=== PATIENT | male | born 1955 | race Caucasian/White ===

== ENCOUNTER 2016-10-21 16:39 | Emergency (ER) | payer OTHER ==
--- NOTE | 2016-10-21 17:51 | ED ---
Laceration/Wound HPI - HPI Summary HPI Summary: 61M presents with right thumb laceration today. he cut off distal tip with a knife. He brought the tip of the finger with him that he avulised. He is left handed. Last tetanus was 4 years ago. Area is still currently bleeding. He already cut off his pinky on his right hand that they tried to reattach but did not take. - History of Current Complaint Stated Complaint: THUMB LAC Time Seen by Provider: 10/21/16 17:31 Pain Intensity: 3 - Allergy/Home Medications Allergies/Adverse Reactions: Allergies Allergy/AdvReac Type Severity Reaction Status Date / Time No Known Allergies Allergy Verified 10/21/16 16:52 PMH/Surg Hx/FS Hx/Imm Hx Endocrine/Hematology History: Denies: Hx Diabetes Cardiovascular History: Denies: Hx Hypertension, Hx Pacemaker/ICD Sensory History: Denies: Hx Hearing Aid Psychiatric History: Denies: Hx Panic Disorder - Surgical History Surgery Procedure, Year, and Place: RT HAND SURGERY Infectious Disease History: No Infectious Disease History: Denies: Traveled Outside the in Last 30 Days - Family History Known Family History: Positive: Cardiac Disease - Social History Alcohol Use: Weekly Substance Use Type: Reports: Marijuana Smoking Status (MU): Never Smoked Tobacco Review of Systems Negative: Fever Negative: Chest Pain Negative: Shortness Of Breath Positive: Other - avulsion of right thumb All Other Systems Reviewed And Are Negative: Yes Physical Exam Triage Information Reviewed: Yes Vital Signs On Initial Exam: Initial Vitals Temp Pulse Resp BP Pulse Ox 98.2 F 76 15 126/72 100 10/21/16 16:49 10/21/16 16:49 10/21/16 16:49 10/21/16 16:49 10/21/16 16:49 Vital Signs Reviewed: Yes Appearance: Positive: Well-Appearing Skin: Positive: Other - avulsion 2cm by 1 cm avulsion of distal tip of right thumb without bony involvement that does not involve the nail Head/Face: Positive: Normal Head/Face Inspection Eyes: Positive: Normal, Conjunctiva Clear Respiratory/Lung Sounds: Positive: Clear to Auscultation, Breath Sounds Present Cardiovascular: Positive: Normal, RRR Procedures - Laceration/Wound Repair 1 Location: Other - right thumb Description: Irregular Anesthesia: Digital, 1.0% Length, Depth and Shape: 2 cm by 1 cm avulsion with tip of finger present in bag on ice Betadine Prep?: Yes Irrigated w/ Saline (ccs): 1,000 Laceration/Wound Explored: contaminated Closure: Single Layer Debridement: moderate Suture Type: Chromic Number of Sutures: 10 - 3 with 4-0 chromic gut, 7 with 5-0 fast absorbing gut Layer Closure?: No Sterile Dressing Applied?: No Diagnostics - Vital Signs Vital Signs Temp Pulse Resp BP Pulse Ox 10/21/16 16:49 98.2 F 76 15 126/72 100 - Laboratory Lab Statement: Any lab studies that have been ordered have been reviewed, and results considered in the medical decision making process. - Radiology finger Xray Interpretation: Positive (See Comments) - IMPRESSION: SOFT TISSUE DEFECT, NO FRACTURE OR RADIOPAQUE FOREIGN BODY IS SEEN. Radiology Interpretation Completed By: Radiologist Laceration Repair Course/Dx - Course Course Of Treatment: 61M presents with avulsion of distal tip of right thumb. brought tissue that was removed in bag on ice. cleaned and debrided tissue and attached tissue with 10 absorbable sutures: 3 using 4-0 and 7 using 5-0. explained area may not take and to follow up with primary for wound checks. tetanus is up to date. xray no bony involvement. started on antibiotics. patient understands and agrees with plan - Differential Dx Differental Diagnoses: Abrasion, Avulsion, Laceration - Clinical Impression Provider Diagnoses: Avulsion of skin of right thumb Discharge - Discharge Plan Condition: Good Disposition: HOME Prescriptions: Cephalexin CAP* [Keflex CAP*] 500 mg PO BID #13 cap oxyCODONE/Acetamin 5/325 MG* [Percocet 5/325 TAB*] 1 tab PO Q6H PRN #6 tab MDD 4 PRN Reason: Pain Patient Education Materials: Care For Your Absorbable Stitches (ED) Forms: *Work Release Referrals: Non Staff,Doctor [Primary Care Provider] - Additional Instructions: Take antibiotic twice a day for 7 days, first dose given in ED Keep area clean and dry, keep bandage on area and change daily Area may not take, sutures are absorbable and don't need to be removed Take Tylenol or ibuprofen every 6 hours, use narcotic for breath though pain every 6 hours Follow up with primary within 7 days Return to ED if develop any new or worsening symptoms or any signs of infection such as fever, spreading redness, pus Images - Images Hands: 1 - avulsion 2 cm by 1 cm avulsion
--- NOTE | 2016-10-21 18:21 | RAD ---
INDICATION: Cut right thumb with knife. TECHNIQUE: 3 views of the right thumb were obtained. FINDINGS: There is a soft tissue defect adjacent to the tuft of the distal phalanx. No fracture or radiopaque foreign body is seen. IMPRESSION: SOFT TISSUE DEFECT, NO FRACTURE OR RADIOPAQUE FOREIGN BODY IS SEEN.
[2016-10-21] MEDS ORDERED: Cephalexin CAP* 500 MG PO ONE ×2 (19:11→19:43)
[2016-10-21] MEDS ORDERED: oxyCODONE/Acetamin 5/325 MG* TAB PO ONE (19:43)
[2016-10-21 19:59] VITALS: BP 114/78
== END 2016-10-21 19:58 | disposition home or self-care (01) ==
LOC: ED 16:39
DX: S61.011A Laceration without foreign body of right thumb without damage to nail, initial encounter (principal); W26.0XXA Contact with knife, initial encounter; Y93.9 Activity, unspecified; Y92.9 Unspecified place or not applicable
CPT/HCPCS: 12002; 99282; A9270-GY